=== PATIENT | female | born 1945 | race Hispanic/Latino ===

== ENCOUNTER → 2018-01-01 | Outpatient (CLI) | payer OTHER ==
[~2018-01-01] MED LIST: MELO-106 PO; METO100T14 PO; VALS80TA30 PO
== END | disposition home or self-care (01) ==
LOC: SHCH 14:44
PROVIDERS: ATTEND Internal Medicine Cardiovascular Disease
DX: I34.0 Nonrheumatic mitral (valve) insufficiency (principal); R01.1 Cardiac murmur, unspecified
CPT/HCPCS: 93306

== ENCOUNTER → 2018-01-16 | Outpatient (CLI) | payer OTHER | END | disposition home or self-care (01) | LOC: SHCH 10:00 | PROVIDERS: ATTEND Internal Medicine Cardiovascular Disease | DX: I87.2 Venous insufficiency (chronic) (peripheral) (principal) | CPT/HCPCS: 93970 ==

== ENCOUNTER → 2018-02-18 | Outpatient (CLI) | payer OTHER | END | disposition home or self-care (01) | LOC: SHCH 13:34 | PROVIDERS: ATTEND Internal Medicine Cardiovascular Disease | DX: Z09 Encounter for follow-up examination after completed treatment for conditions other than malignant neoplasm (principal) | CPT/HCPCS: 93971 ==

== ENCOUNTER → 2018-05-13 | Outpatient (CLI) | payer OTHER | END | disposition home or self-care (01) | LOC: SHCH 09:25 | PROVIDERS: ATTEND Internal Medicine Cardiovascular Disease | DX: Z09 Encounter for follow-up examination after completed treatment for conditions other than malignant neoplasm (principal) | CPT/HCPCS: 93971 ==

== ENCOUNTER → 2018-10-22 | Outpatient (CLI) | payer OTHER | END | disposition home or self-care (01) | LOC: OIH 13:40 | PROVIDERS: ATTEND Internal Medicine | DX: I10 Essential (primary) hypertension (principal); M47.819 Spondylosis without myelopathy or radiculopathy, site unspecified; M41.80 Other forms of scoliosis, site unspecified | CPT/HCPCS: 71046 ==

== ENCOUNTER → 2020-08-26 | Outpatient (CLI) | payer OTHER | END | disposition home or self-care (01) | LOC: RAH 08:12 | PROVIDERS: ATTEND Internal Medicine | DX: I50.9 Heart failure, unspecified (principal); I51.7 Cardiomegaly | CPT/HCPCS: 71046 ==

== ENCOUNTER → 2020-09-06 | Outpatient (CLI) | payer OTHER | END | disposition home or self-care (01) | LOC: SHCH 15:11 | PROVIDERS: ATTEND Internal Medicine Cardiovascular Disease | DX: I08.3 Combined rheumatic disorders of mitral, aortic and tricuspid valves (principal); I48.0 Paroxysmal atrial fibrillation; R06.09 Other forms of dyspnea; E66.9 Obesity, unspecified; E78.5 Hyperlipidemia, unspecified; I11.9 Hypertensive heart disease without heart failure; R55 Syncope and collapse | CPT/HCPCS: 93306; 93356 ==

== ENCOUNTER → 2020-10-04 | Outpatient (CLI) | payer OTHER | END | disposition home or self-care (01) | LOC: OIH 14:55 | PROVIDERS: ATTEND Internal Medicine | DX: M79.605 Pain in left leg (principal); M79.89 Other specified soft tissue disorders | CPT/HCPCS: 73590 ==

== ENCOUNTER 2020-10-23 18:19 | Observation (INO) | payer OTHER ==
[~2020-10-23] VITALS: Ht 157.5 cm; Wt 97.5 kg
[2020-10-23 18:21] VITALS: BP 97/72
[2020-10-23 19:24] LABS: BASOPHILS % (AUTO) 0.2 % (0.0-5.0); EOSINOPHILS % (AUTO) 0.6 % (0.0-8.0); HEMATOCRIT 35.9 % (36-48); LYMPHOCYTES % (AUTO) 9.3 % (21.0-51.0); MEAN CORPUSCULAR HEMOGLOBIN 29.1 pg (27.0-33.0); MEAN CORPUSCULAR HGB CONC 32.6 g/dL (32.0-36.0); MEAN CORPUSCULAR VOLUME 89.3 fL (79-99); MONOCYTES % (AUTO) 11.4 % (3.0-13.0); NEUTROPHILS % (AUTO) 78.1 % (40.0-77.0); PLATELET COUNT (AUTO) 233 K/uL (130-400); RED BLOOD CELL COUNT(AUTO) 4.02 MIL/uL (4.00-5.50); RED CELL DISTRIBUTION WIDTH 12.4 % (11.0-15.5); WHITE BLOOD COUNT (AUTO) 8.2 K/uL (4.8-10.8)
[2020-10-23 19:39] LABS: ABG BASE EXCESS -3.4 mmol/L (-2.0-3.0); ABG HCO3 19.8 mmol/L (21.0-28.0); ABG PCO2 31 mmHg (32-45)
[2020-10-23 19:49] LABS: B-TYPE NATRIURETIC PEPTIDE 384 pg/mL (0-100)
[2020-10-23] MEDS ORDERED: 0.9%NACL 1000ML 1,503 ML IV ONE (20:00)
[2020-10-23 20:12] LABS: APPEARANCE,URINE Clear (CLEAR); BILIRUBIN,URINE Negative (NEGATIVE); COLOR,URINE Yellow (YELLOW); GLUCOSE, URINE (UA) Negative (NEGATIVE); KETONES,URINE Negative (NEGATIVE); LEUKOCYTE ESTERASE ,URINE Moderate (NEGATIVE); NITRATE,URINE Negative (NEGATIVE); OCCULT BLOOD,URINE Trace (NEGATIVE); PH,URINE 5.5 (5.0-8.0); PROTEIN,URINE Negative (NEGATIVE); UROBILINOGEN,URINE 0.2 mg/dL (0.2-1.0)
[2020-10-23 20:17] LABS: CREATININE 1.3 mg/dL (0.5-1.5); POTASSIUM 4.2 mmol/L (3.5-5.1)
[2020-10-23 20:22] LABS: ALBUMIN 3.1 g/dL (3.5-5.0); BILIRUBIN,TOTAL 0.3 mg/dL (0.2-1.0); TOTAL PROTEIN, SERUM 7.1 g/dL (6.0-8.3)
[2020-10-23 20:25] LABS: BACTERIA,URINE Few /HPF (None Seen); SQUAMOUS EPITHELIAL CELL,UR Few /HPF (0-2)
[2020-10-23 20:26] LABS: MUCUS,URINE Rare LPF (None Seen)
[2020-10-23] MEDS ORDERED: DILTIAZEM 125MG+100 ML NS 125 ML IV PRN (20:30)
[2020-10-23] MEDS ORDERED: DILTIAZEM 25MG INJ IVP PRN (20:30)
[2020-10-23] MEDS ORDERED: DILTIAZEM 50MG VIAL IV ONE (22:47)
[2020-10-23 23:14] VITALS: BP 130/81
[2020-10-23 23:35] VITALS: BP 139/79
[2020-10-24] VITALS: BP 114/74
[2020-10-24 00:20] VITALS: BP 110/66
[2020-10-24] MEDS ORDERED: DILTIAZEM 50MG VIAL IV SCH (01:30)
[2020-10-24 01:52] VITALS: BP 105/55
[2020-10-24 04:05] VITALS: BP 99/61
[2020-10-24] MEDS ORDERED: 1/2 NS 1000ML 1,000 ML IV SCH (06:00)
[2020-10-24] MEDS ORDERED: DILTIAZEM 125 MG/25 ML INJ 125 MG in 0.9%NACL 100ML 100 ML IV SCH (06:00)
[2020-10-24 06:18] LABS: BASOPHILS % (AUTO) 0.5 % (0.0-5.0); EOSINOPHILS % (AUTO) 0.9 % (0.0-8.0); HEMATOCRIT 35.3 % (36-48); LYMPHOCYTES % (AUTO) 12.8 % (21.0-51.0); MEAN CORPUSCULAR HEMOGLOBIN 29.2 pg (27.0-33.0); MEAN CORPUSCULAR HGB CONC 33.1 g/dL (32.0-36.0); MONOCYTES % (AUTO) 11.2 % (3.0-13.0); NEUTROPHILS % (AUTO) 74.1 % (40.0-77.0); PLATELET COUNT (AUTO) 253 K/uL (130-400); RED BLOOD CELL COUNT(AUTO) 4.01 MIL/uL (4.00-5.50); RED CELL DISTRIBUTION WIDTH 12.5 % (11.0-15.5); WHITE BLOOD COUNT (AUTO) 6.4 K/uL (4.8-10.8)
[2020-10-24 06:32] LABS: ALBUMIN 2.8 g/dL (3.5-5.0); BILIRUBIN,TOTAL 0.4 mg/dL (0.2-1.0); CREATININE 1.1 mg/dL (0.5-1.5); POTASSIUM 4.1 mmol/L (3.5-5.1); TOTAL PROTEIN, SERUM 7.1 g/dL (6.0-8.3)
[2020-10-24 08:43] VITALS: BP 114/76
[2020-10-24] MEDS ORDERED: ENOXAPARIN SODIUM 100 MG/1 ML SQ SCH (09:00)
[2020-10-24] MEDS ORDERED: METOPROLOL TARTRATE 25 MG TAB PO SCH (09:00)
[2020-10-24] MEDS ORDERED: CEFTRIAXONE 1G VIAL IVP SCH (09:00)
[2020-10-24 10:07] VITALS: BP 110/70
== END 2020-10-24 12:27 | disposition home or self-care (01) ==
LOC: EDH 18:19 → EDHIP 21:30
PROVIDERS: ADMIT Internal Medicine; ATTEND Internal Medicine
DX: I48.20 Chronic atrial fibrillation, unspecified (principal); Z20.822 Contact with and (suspected) exposure to COVID-19; I11.0 Hypertensive heart disease with heart failure; I50.9 Heart failure, unspecified; R19.7 Diarrhea, unspecified; T36.95XA Adverse effect of unspecified systemic antibiotic, initial encounter; F41.9 Anxiety disorder, unspecified; R53.1 Weakness; N39.0 Urinary tract infection, site not specified; K52.1 Toxic gastroenteritis and colitis; R22.43 Localized swelling, mass and lump, lower limb, bilateral; Y92.89 Other specified places as the place of occurrence of the external cause
CPT/HCPCS: 36415 ×2; 36600; 71045; 80053 ×2; 81001; 82550; 82803; 83605; 83880; 84484; 85025 ×2; 87040 ×2; 87088; 87635; 87804 ×2; 87880; 93005 ×2; 93970; 96361 ×2; 96365; 96366; 96375; 99285; C9803; G0378 ×15; J0696; J3490

== ENCOUNTER 2020-11-18 08:45 | Observation (INO) | payer OTHER ==
[~2020-11-18] VITALS: Ht 160 cm; Wt 99.9 kg
[2020-11-18 09:35] LABS: BASOPHILS % (AUTO) 0.9 % (0.0-5.0); EOSINOPHILS % (AUTO) 1.6 % (0.0-8.0); HEMATOCRIT 36.9 % (36-48); LYMPHOCYTES % (AUTO) 17.2 % (21.0-51.0); MEAN CORPUSCULAR HEMOGLOBIN 28.6 pg (27.0-33.0); MEAN CORPUSCULAR VOLUME 89.6 fL (79-99); MONOCYTES % (AUTO) 10.1 % (3.0-13.0); NEUTROPHILS % (AUTO) 69.8 % (40.0-77.0); PLATELET COUNT (AUTO) 207 K/uL (130-400); RED BLOOD CELL COUNT(AUTO) 4.12 MIL/uL (4.00-5.50); WHITE BLOOD COUNT (AUTO) 5.5 K/uL (4.8-10.8)
[2020-11-18 09:48] LABS: INR 1.1 (0.85-1.15); PROTHROMBIN TIME 11.9 SEC (9.6-11.6)
[2020-11-18 09:56] LABS: ALBUMIN 3.4 g/dL (3.5-5.0); BILIRUBIN,TOTAL 0.5 mg/dL (0.2-1.0); CREATININE 1.1 mg/dL (0.5-1.5); POTASSIUM 3.9 mmol/L (3.5-5.1); TOTAL PROTEIN, SERUM 7.6 g/dL (6.0-8.3)
[2020-11-18 10:15] VITALS: BP 129/66
[2020-11-18 10:16] LABS: APPEARANCE,URINE Clear (CLEAR); BILIRUBIN,URINE Negative (NEGATIVE); COLOR,URINE Yellow (YELLOW); GLUCOSE, URINE (UA) Negative (NEGATIVE); KETONES,URINE Negative (NEGATIVE); LEUKOCYTE ESTERASE ,URINE Negative (NEGATIVE); NITRATE,URINE Negative (NEGATIVE); OCCULT BLOOD,URINE Negative (NEGATIVE); PH,URINE 5.5 (5.0-8.0); PROTEIN,URINE Trace mg/dL (NEGATIVE)
[2020-11-18 10:33] LABS: BACTERIA,URINE Many /HPF (None Seen); RBC,URINE 0-1 /HPF (0-1); WBC,URINE 0-1 /HPF (0-1)
[2020-11-18 10:34] LABS: HYALINE CASTS, URINE 0-1 /LPF (0-1 /LPF)
[2020-11-18] MEDS: 1/2 NS 1000ML 1,000 ML IV SCH (14:02)
[2020-11-18] MEDS: PANTOPRAZOLE 40 MG TAB DR PO SCH (14:02)
[2020-11-18 16:03] VITALS: BP 124/94
[2020-11-18 19:15] VITALS: BP 135/88
[2020-11-18] MEDS: DOCUSATE SODIUM 100 MG CAP PO SCH (20:04)
[2020-11-18 23:34] VITALS: BP 125/74
[2020-11-19] VITALS (19 sets, daily range): BP systolic 100–145; BP diastolic 55–86
[2020-11-19] MEDS: 1/2 NS 1000ML 1,000 ML IV SCH ×2 (02:20→15:40)
[2020-11-19 03:40] LABS: BASOPHILS % (AUTO) 0.5 % (0.0-5.0); EOSINOPHILS % (AUTO) 1.8 % (0.0-8.0); HEMATOCRIT 32.1 % (36-48); LYMPHOCYTES % (AUTO) 23.9 % (21.0-51.0); MEAN CORPUSCULAR HEMOGLOBIN 29.1 pg (27.0-33.0); MEAN CORPUSCULAR HGB CONC 32.4 g/dL (32.0-36.0); MEAN CORPUSCULAR VOLUME 89.7 fL (79-99); MONOCYTES % (AUTO) 11.3 % (3.0-13.0); NEUTROPHILS % (AUTO) 62.1 % (40.0-77.0); PLATELET COUNT (AUTO) 152 K/uL (130-400); RED BLOOD CELL COUNT(AUTO) 3.58 MIL/uL (4.00-5.50); RED CELL DISTRIBUTION WIDTH 13.8 % (11.0-15.5); WHITE BLOOD COUNT (AUTO) 5.5 K/uL (4.8-10.8)
[2020-11-19 03:56] LABS: ALBUMIN 2.8 g/dL (3.5-5.0); BILIRUBIN,TOTAL 0.7 mg/dL (0.2-1.0); TOTAL PROTEIN, SERUM 6.1 g/dL (6.0-8.3)
[2020-11-19] MEDS: PANTOPRAZOLE 40 MG TAB DR PO SCH (08:53)
[2020-11-19] MEDS: DOCUSATE SODIUM 100 MG CAP PO SCH ×2 (08:53→20:20)
[2020-11-19] MEDS ORDERED: IRON SUCROSE COMPLEX 100 MG in 0.9%NACL 50ML 50 ML IV SCH (09:00)
[2020-11-19] MEDS ORDERED: ESMOLOL HCL 10 MG/ML 10 ML VIAL ONE (12:11)
[2020-11-19] MEDS ORDERED: METOPROLOL TARTRATE 1 MG/ML 5ML VIAL IV ONE (13:14)
[2020-11-19] MEDS ORDERED: PHENYLEPHRINE HCL 10 MG/ML 1ML VIAL IV ONE ×2 (13:15)
[2020-11-19] MEDS ORDERED: PROPOFOL 10 MG/ML 20ML VIAL IV ONE (13:21)
[2020-11-19] MEDS ORDERED: MIDAZOLAM HCL 1 MG/ML 2ML VIAL ONE (13:31)
[2020-11-19] MEDS ORDERED: ALBUMIN (HUMAN) 5% 250 ML IV ONE (13:40)
[2020-11-19] MEDS ORDERED: FUROSEMIDE 40MG VIAL ONE (14:15)
[2020-11-19] MEDS ORDERED: METOPROLOL TARTRATE 1 MG/ML 5ML VIAL IV PRN (15:00)
[2020-11-19] MEDS ORDERED: POLYETHYLENE GLYCOL 3350 17 GM POWD.PACK PO ONE (17:30)
[2020-11-19] MEDS: METOPROLOL SUCCINATE 50 MG TAB.SR.24H PO SCH (20:19)
[2020-11-19] MEDS: HYDROCORTISONE 25 MG SUPPOSITORY PR SCH (20:19)
[2020-11-20 04:11] VITALS: BP 131/88
[2020-11-20 07:52] VITALS: BP 118/80
[2020-11-20] MEDS: METOPROLOL SUCCINATE 50 MG TAB.SR.24H PO SCH (08:01)
[2020-11-20] MEDS ORDERED: FUROSEMIDE 20MG VIAL IV SCH (09:00)
[2020-11-20] MEDS: DOCUSATE SODIUM 100 MG CAP PO SCH (11:07)
[2020-11-20] MEDS: PANTOPRAZOLE 40 MG TAB DR PO SCH (11:07)
[2020-11-20] MEDS: HYDROCORTISONE 25 MG SUPPOSITORY PR SCH (11:07)
[2020-11-20 11:12] VITALS: BP 127/68
== END 2020-11-20 16:10 | disposition home or self-care (01) ==
LOC: EDH 08:45 → EDHIP 12:30 → 4CH 20:41
PROVIDERS: ADMIT Internal Medicine; ATTEND Internal Medicine
DX: K92.2 Gastrointestinal hemorrhage, unspecified (principal); I25.10 Atherosclerotic heart disease of native coronary artery without angina pectoris; I11.0 Hypertensive heart disease with heart failure; I50.42 Chronic combined systolic (congestive) and diastolic (congestive) heart failure; J45.909 Unspecified asthma, uncomplicated; E03.9 Hypothyroidism, unspecified; I48.0 Paroxysmal atrial fibrillation; D62 Acute posthemorrhagic anemia; E66.9 Obesity, unspecified; E78.00 Pure hypercholesterolemia, unspecified; E78.5 Hyperlipidemia, unspecified; I34.0 Nonrheumatic mitral (valve) insufficiency; I42.8 Other cardiomyopathies; F41.9 Anxiety disorder, unspecified; K21.9 Gastro-esophageal reflux disease without esophagitis; K64.9 Unspecified hemorrhoids; Z79.01 Long term (current) use of anticoagulants; Z87.440 Personal history of urinary (tract) infections; Z98.891 History of uterine scar from previous surgery; Z79.899 Other long term (current) drug therapy; Z98.890 Other specified postprocedural states; Z68.39 Body mass index [BMI] 39.0-39.9, adult
CPT/HCPCS: 36415 ×3; 44360; 80053 ×2; 81001; 82270; 82550; 83880; 84484; 85025 ×2; 85610; 86677; 86850; 86900; 86901; 87077; 87088; 87186; 87635; 93005 ×2; 96361 ×3; 96365; 96375; 99284; A4215; A4606; A4620; A4657; C9803; G0378 ×50; J1756; J1940; J2250; J2370 ×2; J2704; J3490 ×2; J7030; P9045

== ENCOUNTER → 2024-02-22 | Outpatient (CLI) | payer OTHER ==
--- NOTE | 2024-02-22 18:35 | HMCSR ---
APPROVED REPORT EXAM: Two-dimensional and M-mode echocardiogram with Doppler and color Doppler. 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 2D Dimensions RVDd3.0 cmLVEF(%)58.2 (>50%)LVED Vol(simp.)117.0 mL IVSd1.1 (0.7-1.1cm)FS(%)31 %LVES Vol(simp.)69.0 mL LVDd5.2 (3.8-5.6cm)LA (2D)5.5 (1.6-4.0cm)LVEF(%, simp.)41 % PWd1.3 (0.7-1.1cm)Ao Root(2D)3.1 (2.0-3.7cm)LA ESV INDEX (4CH)63.80 mL/m2 IVSs1.4 cmLVOT diam1.9 (1.8-2.4cm)LA ESV INDEX (2CH)58.50 mL/m2 LVDs3.6 (2.5-4.0cm)LA ESV INDEX (BP)61.20 mL/m2 PWs1.8 cm M-Mode Dimensions EPSS0.8 cm LA (MM)5.0 (1.6-4.0cm) Ao Root(MM)2.8 (2.0-3.7cm) Aortic Valve AoV VTI0.2 mAo Mean GR5.0 mmHgLVOT VTI0.12 m CINTHIA (VMAX)1.4 cm2Al P1/2T405 msAVA (VTI) 1.4 cm2 Mitral Valve MR Max PG138 mmHgP 1/2 T65 msMR OAO254 cm2 MVA (PHT)3.4 cm2 TDI Medial E' Peak V8.30 cm/sLateral E' Peak V15.30 cm/s Pulmonary Valve PV VTI0.13 mPV Mean GR2 mmHg PI End Kylah. Julio César 176.5 cm/s Tricuspid Valve TR Vmax2.5 m/sRAP (EST) 3 baCyRHOO36.4 mmHg TR Peak GR24.4 mmHg Left Ventricle Left ventricular cavity size is normal. There is normal LV segmental wall motion. There is normal lef t ventricular wall thickness. LVEF is 45-50%. Indeterminate diastolic dysfunction. Right Ventricle The right ventricle is normal size. Right ventricular systolic function is mildly reduced. Atria The left atrium is severely dilated. LASVI 61mL/m. The right atrium is moderately dilated. Aortic Valve Aortic valve is trileaflet and open well. Trace of aortic regurgitation is present. There is no aorti c valvular stenosis. Mitral Valve Mitral valve leaflets open well. There is moderate mitral valve regurgitation noted. There is no mitr al valve stenosis. Tricuspid Valve The tricuspid valve leaflets appear normal. There is trace of tricuspid valve regurgitation noted. Pulmonic Valve The pulmonary valve is normal in structure and function. There is trace pulmonic valvular regurgitati on. Great Vessels The aortic root is normal in size. The IVC is normal in size and collapses >50% with inspiration. Pericardium No pericardial effusion. Other Information Quality : Fair Conclusion LVEF is 45-50%. Trace of aortic regurgitation is present. There is moderate mitral valve regurgitation noted.
== END | disposition home or self-care (01) ==
LOC: RAH 13:25
PROVIDERS: ATTEND Internal Medicine
DX: I34.0 Nonrheumatic mitral (valve) insufficiency (principal); I50.42 Chronic combined systolic (congestive) and diastolic (congestive) heart failure
CPT/HCPCS: 93306

== ENCOUNTER → 2024-05-13 | Outpatient (CLI) | payer OTHER ==
--- NOTE | 2024-05-13 09:51 | HMCIMG ---
US ABDOMINAL COMPLETE REASON: generalized abd pain COMPARISON: None FINDINGS: There is mild fatty infiltration of the liver. There are no focal mass lesions. The liver is borderline in size at 16 cm.There is a normal-appearing gallbladder. Right kidney is 9.2 x 5.3 x 4.8 cm, left 8.6 x 5.1 x 4.9 cm. Kidneys are echogenic with some cortical thinning consistent with a component of chronic renal disease. There is no mass, stone or hydronephrosis. Spleen and common duct appear normal. Aorta and inferior vena cava appear normal. The pancreas appears normal as well. IMPRESSION: 1. Mild hepatic steatosis, the liver is borderline in size at 16 cm. 2. Echogenic kidneys with mild renal cortical thinning consistent with a component of chronic renal disease. 3. No acute finding.
== END | disposition home or self-care (01) ==
LOC: RAH 07:40
PROVIDERS: ATTEND Internal Medicine
DX: K76.0 Fatty (change of) liver, not elsewhere classified (principal); R10.84 Generalized abdominal pain
CPT/HCPCS: 76700

== ENCOUNTER → 2024-07-09 | Outpatient (CLI) | payer OTHER ==
[~2024-07-09] MED LIST changes: +ASCO500C18 PO; +CARV3.12 PO; +CYAN100099 PO; +FURO20TA4 PO; +LEVO50CA4 PO; -MELO-106 PO; -METO100T14 PO; +PANT40TA54 PO; +ROSU10TA72 PO; -VALS80TA30 PO
--- NOTE | 2024-07-13 14:16 | HMCSR ---
APPROVED REPORT Bilateral Lower Extremity Venous Study for Venous Competence., DVT. Indications Venous insufficiency Vein Imaging CFV (R): Normal flow, augmentation and compression. No evidence of DVT. 11.8mm 1100ms of reflux. SFJ (R): Normal flow, augmentation and compression. No evidence of DVT. FEM (R): Normal flow, augmentation and compression. No evidence of DVT. POP (R): Normal flow, augmentation and compression. No evidence of DVT. DFV (R): Normal flow, augmentation and compression. No evidence of DVT. PTV (R): Normal flow, augmentation and compression. No evidence of DVT. Peroneals (R): Normal flow, augmentation and compression. No evidence of DVT. CFV (L): Normal flow, augmentation and compression. No evidence of DVT. 10.2mm 1056ms of reflux. SFJ (L): Normal flow, augmentation and compression. No evidence of DVT. FEM (L): Normal flow, augmentation and compression. No evidence of DVT. POP (L): Normal flow, augmentation and compression. No evidence of DVT. DFV (L): Normal flow, augmentation and compression. No evidence of DVT. PTV (L): Normal flow, augmentation and compression. No evidence of DVT. Peroneals (L): Normal flow, augmentation and compression. No evidence of DVT. Technologist Impression Deep veins of bilateral lower extremities appear patent and compressible without thrombus Deep vein reflux seen in the RCFV & LCFV superficial venous insufficiency seen in the RGSV & LGSV Patient extremely sensitive to touch/ body habitus. RGSV junction 5.5mm 506ms thigh 3.5mm 0.0ms knee 2.0mm 0.0ms calf 1.9mm 178ms( Cluster of veins) RSSV prox( Not seen) mid ( Not seen) LGSV junction 6.8mm 550ms thigh 3.9mm 250ms knee 1.6mm 0.0ms calf ( Not Seen) LSSV prox (Not seen) mid (Not Seen) Conclusion Deep vein reflux seen in the RCFV & LCFV superficial venous insufficiency seen in the RGSV & LGSV No DVT Conclusion Deep vein reflux seen in the RCFV & LCFV superficial venous insufficiency seen in the RGSV & LGSV No DVT
== END | disposition home or self-care (01) ==
LOC: SHCH 07:46
PROVIDERS: ATTEND Internal Medicine Cardiovascular Disease
DX: I08.8 Other rheumatic multiple valve diseases (principal); I87.2 Venous insufficiency (chronic) (peripheral)
CPT/HCPCS: 93306; 93970